=== PATIENT | male | born 1945 | race Caucasian/White ===

== ENCOUNTER 2016-12-17 06:48 | Outpatient (CLI) | payer MEDICARE ==
[~2016-12-17] VITALS: Ht 188 cm; Wt 90.5 kg
--- NOTE | ~2016-12-17 | HEMODYNAMI ---
PATIENT:LILIAN LANE MEDICAL RECORD: [id number] : 47 LOCATION:[facility] ADMISSION DATE: 12/17/16 Generatedon:12/17/20169:24 Patient name: LILIAN LANE Patient #: [id number] : 1945 Date of study: 12/17/2016 Page: Of Hemodynamic Procedure Report Patient Data Patient Demographics Procedure consent was obtained First Name: LILIAN Gender: Male Last Name: ARIANA : 1945 Patient #: [id number] Age: 71 year(s) Race: SSN: [id number] Additional ID: [id number] Contact details [address]: [address] [place] [address] State: [place] City: [place] Zip code: [address] Admission Admission Data Admission Date: 12/17/2016 Admission Time: 6:48 Arrival Date: 12/17/2016 Arrival Time: 9:00 Admit Source: Other Insurance Payor: Medicare Height (in.): 74 BSA: 2.15 (m2) Height (cm.): 187.96 BMI: 25.04 (kg/m2) Weight (lbs.): 195 Weight (kg.): 88.45 Lab Results Lab Result Date: 12/17/2016 Lab Result Time: 0:00 Biochemistry Name Units Result Min Max BUN mg/dl 9 --(*---)-- 7 18 Creatinine mg/dl 1.3 --(---*)-- 0.6 1.3 CBC Name Units Result Min Max Hemoglobin g/dl 13.4 -*(----)-- 13.5 17.5 Procedure Procedure Types Cath Procedure Diagnostic Procedure LHC LHC w/Coronaries w/Grafts Miscellaneous Procedures Moderate Sedation up to 30 minutes Procedure Description Procedure Date Procedure Date: 12/17/2016 Procedure Start Time: 9:01 Procedure End Time: 9:21 Procedure Staff Name Function Guillaume Henry MD Performing Physician Estella Kong RT Scrub Mike Morataya RN Nurse Jake Sanchez RT Monitor Procedure Data Cath Procedure Fluoroscopy Diagnostic fluoroscopy Total fluoroscopy Time: 5.2 time: 5.2 min min Diagnostic fluoroscopy Total fluoroscopy dose: 628 dose: 628 mGy mGy Contrast Material Contrast Material Type Amount (ml) Isovue 370 113 Entry Location Entry Primary Successful Side Size Upsize Upsize Entry Closure Succes sful Closure Location (Fr) 1 (Fr) 2 (Fr) Remarks Device Remarks Femoral Right 5 Fr Exoseal artery Estimated blood loss: 5 ml Diagnostic catheters Device Type Used For End Catheter Placement Cordis 5Fr JL 4.0 Left Coronary Catheter (MP) Angiography Cordis 5Fr 3DRC Catheter Right Coronary (MP) Angiography Diagnostic Infinity 5Fr Multi-vessel IM catheter Angiography Diagnostic Infinity 5Fr Multi-vessel AR MOD Catheter Angiography Cordis 5Fr Pigtail LV Angiography Catheter (MP) Procedure Complications No complications Procedure Medications Medication Administration Route Dosage Oxygen NC 2 l/min Heparin Flush Bag added to field 2 bags (1000units/500ml NS) 0.9% NaCl I.V. 100 ml/hr Fentanyl I.V. 50 mcg Versed I.V. 1 mg Fentanyl I.V. 50 mcg Versed I.V. 1 mg Hemodynamics Rest BSA: 2.15 (m2) HGB: 13.4 (g/dl) O2 Consumption: Estimated: 259.15 (ml/min) O2 Co nsumption indexed: Estimated:120.53 (ml/min/m) Heart Rate: 83 (bpm) Pressure Samples Time Site Value (mmHg) Purpose Heart Use Rate(bpm) 9:15 LV 121/21,47 Snapshot 67 9:16 AO 123/68(97) Pullback 69 Gradients Valve Time Site Site 2 Mean SEP/DFP Peak To Heart Use 1 (mmHg) (sec/min) Peak Rate (mmHg) (bpm) Aortic 9:16 LV AO 11 56 69 123/68(97) Calculations Valve P-P Mean Valve Index Valve Source Name Gradient Area Flow (cm2) Aortic 11 11 Snapshots Pre Cath Intra NCS Post Cath Vital Signs Time Heart Resp SPO2 etCO2 [id number] NIBP (mmHg) Rhythm Pain Sedation Rate (ipm) (%) (mmHg) (mmHg) Status Level (bpm) 8:44:51 67 18 95 0 0 136/69(83) NSR 0 (11) 10(A) , No pain 8:49:03 65 18 97 0 0 127/64(102) NSR 0 (11) 10(A) , No pain 8:53:13 70 19 97 0 0 123/75(100) NSR 0 (11) 10(A) , No pain 8:57:23 57 18 98 0 0 117/71(90) NSR 0 (11) 10(A) , No pain 9:01:32 59 18 96 0 0 114/64(87) NSR 0 (11) 10(A) , No pain 9:05:40 60 16 93 0 0 112/66(82) NSR 0 (11) 10(A) , No pain 9:09:46 63 19 94 0 0 112/71(85) NSR 0 (11) 10(A) , No pain 9:13:52 68 17 95 0 0 108/69(78) NSR 0 (11) 10(A) , No pain 9:17:58 57 18 95 0 0 111/68(92) NSR 0 (11) 10(A) , No pain Medications Time Medication Route Dose Verified Delivered Reason Notes Effect iveness by by 8:51:10 Oxygen NC 2 Mike Mike Per l/min Hood Morataya RN physician RN 8:51:19 Heparin Flush added 2 Mike Mike used for Bag to bags Hood Morataya sat act instructor (1000units/500ml field RN NS) 8:51:38 0.9% NaCl I.V. 100 Mike Mike Per ml/hr Hood Morataya RN physician RN 8:53:28 Fentanyl I.V. 50 Mike Mike for hans Morataya RN sedation RN 8:53:51 Versed I.V. 1 mg Mike Mike for Hood Morataya RN sedation RN 8:59:15 Fentanyl I.V. 50 Mike Mike for hans Morataya RN sedation RN 8:59:18 Versed I.V. 1 mg Mike Mike for oHod Morataya RN sedation emissions testing and repair technician Log Time Note 8:18:25 Informed consent obtained and on chart 8:18:31 Diagnostic Cath Status : Elective 8:20:00 Mike Morataya RN sent for patient. Start room use. 8:21:30 Admit Source: Other 8:21:34 Arrival Date: 12/17/2016 9:00:00 AM 8:21:41 Insurance Payor : Medicare 8:26:01 Patient Height : 74 cm 8:26:33 Patient Weight : 195 kg 8:30:09 Lab Result : BUN 9 mg/dl 8:30:09 Lab Result : Hemoglobin 13.4 g/dl 8:30:09 Lab Result : Creatinine 1.3 mg/dl 8:35:28 Time tracking: Regular hours 8:35:34 Plan of Care:Hemodynamics will remain stable., Cardiac rhythm will remain stable., Comfort level will be maintained., Respiratory function will remain adequate., Patient/ family verbilizes understanding of procedure., Procedure tolerated without complication., Recovers from procedure without complications.. 8:37:53 Patient received from Pre/Post Procedure Room to CCL 1 Alert and oriented. Tansferred to table in Supine position. 8:37:55 Warm blankets applied, and stephen hugger turned on for patient comfort. 8:37:55 Correct patient and procedure confirmed by team. 8:37:56 ECG and BP/O2 sat monitors applied to patient. 8:43:52 Vital chart was started 8:45:38 Baseline sample Acquired. 8:45:47 Rhythm: sinus rhythm 8:45:49 Full Disclosure recording started 8:45:53 H&P Date Dictated: 12/17/2016 New H&P dictated by physician.. 8:45:55 Pre-procedure instructions explained to patient. 8:45:55 Pre-op teaching completed and patient verbalized understanding. 8:45:56 Family in waiting room. 8:45:58 Patient NPO since Midnight. 8:46:10 Is the patient allergic to Iodine/contrast media? No. 8:46:13 Was the patient premedicated? No 8:46:14 Is patient on blood thinner?No 8:46:15 Patient diabetic? No. 8:46:18 Previous problem with sedation/anesthesia? No ? 8:46:25 Snore? No 8:46:26 Sleep apnea? No 8:46:28 Deviated septum? No 8:46:29 Opens mouth fully? Yes 8:46:29 Sticks out tongue? Yes 8:46:31 Airway obstruction? No ? 8:46:35 Dentures? No ? 8:49:13 Pre procedure: right dorsailis pedis pulse 1+ Palpable, but thready & weak; easily obliterated 8:49:16 Pre procedure: left dorsailis pedis pulse 1+ Palpable, but thready & weak; easily obliterated 8:49:18 Patient pain scale 0/10 ?. 8:49:37 IV patent on arrival in right forearm with 0.9% NaCl at O. 8:49:40 Lab results completed and on chart. 8:49:44 Right groin area was prepped with chlora-prep and draped in sterile fashion 8:49:45 Alarms reviewed by R. N. 8:49:46 Sharps counted by scrub and verified by R.N. 8:49:48 Physician arrived 8:49:48 --------ALL STOP TIME OUT------ 8:49:49 Final Timeout: patient, procedure, and site verified with staff and physician. All members of the team are in agreement. 8:49:50 Right groin site verified by team. 8:50:01 Physical assessment completed. ASA score P 2 - A patient with mild systemic disease as per Guillaume Henry MD. 8:50:05 Sedation plan: IV Moderate Sedation Versed, Fentanyl 8:50:09 Use device set Femoral Dx 8:50:11 Acist Syringe opened to sterile field. 8:50:11 Bag Decanter opened to sterile field. 8:50:11 Medline Cath Pack opened to sterile field. 8:50:12 Terumo 5Fr [place] Sheath opened to sterile field. 8:50:12 St Rick 260cm J .035 wire opened to sterile field. 8:50:14 Acist Hand Control opened to sterile field. 8:50:14 Acist Manifold opened to sterile field. 8:50:14 Diagnostic Infinity 5Fr Multipack catheter opened to sterile field. 8:50:15 Tegaderm 4 x 4 opened to sterile field. 8:51:10 Oxygen 2 l/min NC was administered by Mike Morataya RN; Per physician; 8:51:19 Heparin Flush Bag (1000units/500ml NS) 2 bags added to field was administered by Mike Morataya RN; used for procedure; 8:51:38 0.9% NaCl 100 ml/hr I.V. was administered by Mike Morataya RN; Per physician; 8:53:28 Fentanyl 50 mcg I.V. was administered by Mike Morataya RN; for sedation; 8:53:51 Versed 1 mg I.V. was administered by Mike Morataya RN; for sedation; 8:59:15 Fentanyl 50 mcg I.V. was administered by Mike Morataya RN; for sedation; 8:59:18 Versed 1 mg I.V. was administered by Mike Morataya RN; for sedation; 8:59:58 Procedure started. 9:01:04 Local anesthetic to right femoral artery with Lidocaine 2% by Guillaume Henry MD.INITIAL ACCESS ONLY 9:01:37 A 5 Fr sheath was inserted into the Right Femoral artery 9:02:46 A Cordis 5Fr JL 4.0 Catheter (MP) was advanced over the wire and used for Left Coronary Angiography. 9:03:56 LCA angiography performed. 9:04:00 Injector settings: Ml/sec: 3, Volume: 6, 9:07:12 Catheter removed. 9:07:16 A Cordis 5Fr 3DRC Catheter (MP) was advanced over the wire and used for Right Coronary Angiography. 9:07:46 RCA angiography performed. 9:07:48 Injector settings: Ml/sec: 3, Volume: 6, 9:08:43 Catheter removed. 9:08:56 A Diagnostic Infinity 5Fr IM catheter was advanced over the wire and used for Multi-vessel Angiography. 9:09:03 NGUYEN angiography performed. 9:09:07 Injector settings: Ml/sec: 3, Volume: 6, 9:11:52 Catheter removed. 9:12:18 A Diagnostic Infinity 5Fr AR MOD Catheter was advanced over the wire and used for Multi-vessel Angiography. 9:13:28 SVG to Circ occluded. 9:14:09 SVG to RCA occluded. 9:15:05 Catheter removed. 9:15:13 A Cordis 5Fr Pigtail Catheter (MP) was advanced over the wire and used for LV Angiography. 9:15:51 LV hemodynamics recorded. 9:15:53 LV gram done using MCKEON 9:15:56 Injector settings: Ml/sec: 5, Volume: 15, 9:16:04 EF : 15 % 9:16:52 Aortic Root visualized 9:17:22 Catheter removed. 9:17:56 Cordis 5Fr Exoseal opened to sterile field. 9:18:14 Sheath removed intact; hemostasis achieved with Exoseal to the Right Femoral artery. 9:18:17 Procedure ended.(Physican Out) 9:18:38 Fluoroscopy time 05.20 minutes. 9:18:43 Flurop Dose total: 628 9:18:44 Fluoroscopy dose: 628 mGy 9:18:49 Contrast amount:Isovue 370 113ml. 9:18:54 Sharps counted by scrub and verified by R.N. 9:18:58 Insertion/operative site no bleeding no hematoma. 9:19:01 Post-op/insertion site Right Femoral artery dressed using a 4 x 4 and Tegaderm. 9:19:05 Post right femoral artery:stable 9:19:22 Post Procedure Pulses reassessed and unchanged 9:19:25 Post procedure rhythm: unchanged. 9:19:27 Estimated blood loss: 5 ml 9:19:30 Post procedure instruction explained to patient.Patient verbalizes understanding. 9:19:30 Patient needs reinforcement of post procedure teaching. 9:20:13 Procedure type changed to Cath procedure, Diagnostic procedure, LHC, LHC w/Coronaries w/Grafts, Miscellaneous Procedures, Moderate Sedation up to 30 minutes 9:20:14 Procedure and supply charges have been captured, reviewed, submitted and are correct. 9:20:24 Procedure Complication : No complications 9:20:27 Vital chart was stopped 9:20:28 See physician's report for complete and final results. 9:21:04 Report given to Pre/Post Procedure Room. 9:21:07 Patient transfered to Pre/Post Procedure Room with Stretcher. 9:21:11 Procedure ended. 9:21:11 Full Disclosure recording stopped 9:21:42 End room use (Document Last) Device Usage Item Name Manufacture Quantity Catalog Hospital Part Current Minimal Lo t# / Number Charge Number Stock Stock Serial# Code Acist Acist 1 56344 704693 453443 177793 20 Syringe [employer] Bag Microtek 1 2002S 307263 22026 548074 5 Decanter [employer] Inc. Medline Cardinal 1 [id number] 469902 13906 538739 5 Cath MindEdge Terumo 5Fr Terumo 1 [id number] 463741 611754 424976 [address] [place] [address] Rick St Rick 1 830695 676044 253721 195658 30 260cm J .035 wire Acist Hand Acist 1 59136 779894 074711 150929 5 Control [employer] Inc Acist Acist 1 25268 606512 227021 590992 5 Manifold Medical Systems Inc Diagnostic Cardinal 1 [id number] 869922 29254 535079 30 Infinity Health 5Fr Multipack catheter Tegaderm 4 3M 1 1626W 484449 142870 918217 5 x 4 Cordis 5Fr Cardinal 1 365347 5 JL 4.0 Health Catheter (MP) Cordis 5Fr Cardinal 1 385710 5 3DRC Health Catheter (MP) Diagnostic Cardinal 1 [id number] 795226 726464 571961 5 Infinity Health 5Fr IM catheter Diagnostic Cardinal 1 [id number] 950610 261280 179030 15 Infinity Health 5Fr AR MOD Catheter Cordis 5Fr Cardinal 1 659719 5 Pigtail Health Catheter (MP) Cordis 5Fr Cardinal 1 EX500 237258 545879 295573 10 [employer]buy Signature Audit [place] Stage Time Signature Unsigned Intra-Procedure 12/17/2016 Estella Kong 9:23:57 AM RT(R) Signatures Monitor : Jake Sanchez RT Signature : Date : Time : [place] [id number] [facility] [place] [address]
--- NOTE | ~2016-12-17 | OP ---
PATIENT NAME: LILIAN LANE MEDICAL RECORD: [id number] :47 LOCATION:D.CAT ADMISSION DATE: SURGEON: NAVEED PADRON M.D. DATE OF OPERATION: 12/17/2016 PROCEDURES PERFORMED: 1. Selective coronary angiography. 2. Left heart catheterization with ventriculogram. 3. Aortic root injection. 4. Bypass angiography. 5. Left internal mammary injection. INDICATION: A 71-year-old gentleman presents with worsening dyspnea. Recent stress test revealed anterior and inferior wall ischemia. EQUIPMENT USED: A 5-[place] JL4, AR modified catheter, internal mammary catheter, pigtail catheter. TECHNIQUE: A 5-[place] sheath was inserted in retrograde fashion in the right common femoral artery. Next, selective coronary angiography was performed in standard 5-[place] JL4, AR modified catheters. Bypass angiography was performed using an AR modified catheter. The internal mammary was selected with internal mammary catheter. Left heart catheterization performed using pigtail catheter. The catheter was then pulled back in the ascending aorta. Aortogram was performed as there was some difficulty crossing the aortic valve. CORONARY ANATOMY: 1. Left main: Left main trunk is large in caliber. It gives rise to the LAD and circumflex. It has no obstruction. 2. LAD: This vessel is 100% occluded at the origin. 3. Circumflex: This vessel is moderate in caliber. There is a long 90% stenosis before the bifurcation point. Lateral branch is occluded at the origin, but fills through intercoronary collaterals. The AV continuation of the circumflex fills the distal right coronary artery as well. There appears to be a ramus branch that is severely diseased. It appears to be occluded in the proximal segment fills through bridging collaterals. 4. Right coronary: This vessel is 100% occluded in the proximal segment. The distal vessel fills through intercoronary collaterals. 5. Left internal mammary artery to LAD: This graft is widely patent throughout its course. Beyond anastomosis, the vessel is small. It is patent. At the level of the apex, the vessel is occluded, but the apex fills through intercoronary collaterals from the diagonal branch. The distal LAD also provides collaterals to fill the distal right coronary artery. 6. Saphenous vein graft to diagonal branch. This graft is occluded at the origin. 7. Saphenous vein graft to obtuse marginal branch: This graft is occluded at the origin. 8. Saphenous vein graft to the PDA: This graft is occluded at the origin. 9. Left ventricle: Left ventricle is dilated. There is severe LV dysfunction noted. There is severe global hypokinesis noted. Estimated ejection fraction is in the order of 15%. AORTOGRAM: Ascending aortogram was performed secondary to difficulty in crossing the aortic valve. The ascending aorta is of abnormal caliber. I do not see any insufficiency. There is no evidence of stenosis. There are no patent bypass grafts OPERATIVE REPORT [id number] LILIAN LANE noted. IMPRESSION: 1. Severe marshall coronary artery disease. Most vessels fills through intercoronary collaterals. 2. Patent left internal mammary artery graft to LAD. This graft is essentially fills the distal right coronary artery as well as the distal LAD. 3. Severe left ventricular dysfunction with ejection fraction of 15%. RECOMMENDATIONS: At this point, we will continue with medical management as there is no relapses for revascularization. TRANSINT:[id number] Voice Confirmation ID: [id number] DOCUMENT ID: [id number], [id number] NAVEED PADRON M.D. CC: [id number] DICTATION DATE: 12/17/16928 NATIONAL SALES ASSOCIATE: 12/17/162014 [facility] CLI 12/17/16 [facility] [address] [place] [address]
[~2016-12-17 06:48] MED LIST: AMBIEN10 MG PO; CIPRO500 MG PO; CLOTRIM ANTIFUN15 GM TOPICAL; DIFLUCAN PREMI100 MG IV; FAMOTIDINE10 MG PO; KLONOPIN1 MG PO; LISINOPRIL10 MG PO; MELATONIN 3 MG1 TAB PO; MOBIC7.5 MG PO; PROZAC20 MG PO; TEFLARO 600 MG600 M1 IV; ULTRAM50 MG PO; Unna-Flex TOPICAL; ZESTRIL20 MG PO; ZYLOPRIM100 MG PO
[2016-12-17] MEDS ORDERED: CYMBALTA30 MG PO (07:22)
[2016-12-17] MEDS ORDERED: KLONOPIN1 MG PO (07:23)
[2016-12-17] MEDS ORDERED: CARDIZEM120 MG PO (07:23)
[2016-12-17] MEDS ORDERED: NORCO 7.5/325 T1 TA1 PO (07:24)
[2016-12-17] MEDS ORDERED: AMBIEN10 MG PO (07:24)
[2016-12-17 07:34] VITALS: BP 121/64; Ht 188 cm; Wt 90.5 kg
[2016-12-17 07:40] LABS: BASOPHILS 0.5 % (0-2); EOSINOPHILS 3.5 % (0-7); HEMATOCRIT 41.3 % (42.0-54.0); HEMOGLOBIN 13.4 g/dL (13.5-17.5); IMMATURE GRANULOCYTES 0.1 % (0-5); LYMPHOCYTES 9.1 % (15-50); MCH 29.9 pg (26.0-34.0); MCHC 32.4 g/dL (31.0-37.0); MCV 92.2 fL (80.0-100.0); MEAN PLATELET VOLUME 9.8 fL (7.4-10.4); MONOCYTES 9.4 % (2-11); NEUTROPHILS 77.4 % (40-80); RBC 4.48 10x6/uL (4.20-6.10); RDW 14.9 % (11.5-14.5)
[2016-12-17 07:51] LABS: PLATELET COUNT 226 10x3/uL (130-400)
[2016-12-17 07:53] LABS: ANION GAP 11.3 mmol/L (8-16); CALCIUM 9.1 mg/dL (8.5-10.1); CARBON DIOXIDE 29.4 mmol/L (21.0-32.0); CREATININE - SERUM 1.3 mg/dL (0.6-1.3); POTASSIUM - SERUM 3.7 mmol/L (3.5-5.1)
--- NOTE | 2016-12-17 09:42 | NUR ---
VSS WITH CHEST PAIN DENIED. 5 FR EXOSEAL R/GROIN CDI NO BLEEDING NO HEMATOMA NOTED. DR PADRON AT BEDSIDE TALKING TO PATIENT AND FAMILY
--- NOTE | 2016-12-17 10:00 | NUR ---
1000 VSS WITH CHEST PAIN DENIED. 5 FR EXOSEAL R/GROIN CDI NO BLEEDING NO HEMATOMA NOTED. INSTRUCTED PATIENT TO KEEP HEAD FLAT ON PILLOW WITH RLE STRAIGHT 1015 NO CHANGE IN ASSESSMENT R/GROIN REMAINS CDI WITH CHEST PAIN DENIED
--- NOTE | 2016-12-17 10:45 | NUR ---
1045 NO CHANGE IN PREVIOUS ASSESSMENT R/GROIN CDI 1130 REPOSITIONED TO SITTING WITH HOB UP 30 DEGREES CHEST PAIN IS DENIED. R/GROIN CDI
--- NOTE | 2016-12-17 12:00 | NUR ---
1200 PIV REMOVED FROM LEFT ARM WITH DRESSING APPLIED. PATIENT UP TO GET DRESSED FOR DISCHARGE HOME. CHEST PAIN IS DENIED AND R.GROIN CDI NO BLEEDING NO HEMATOMA NOTED 1220 VERBAL AND WRITTEN DISCHARGE GONE OVER WITH PATIENT AND FAMILY. ALL VERBALIZED UNDERSTANDING OF INSTRUCTIONS. LEFT VIA WC TO PARKING FOR FAMILY TO DRIVE HOME. NO C/O OF PAIN
== END 2016-12-17 12:30 ==
LOC: D.CATH 06:48
PROVIDERS: Internal Medicine Cardiovascular Disease
DX: I25.119 Atherosclerotic heart disease of native coronary artery with unspecified angina pectoris (principal); I25.719 Atherosclerosis of autologous vein coronary artery bypass graft(s) with unspecified angina pectoris; I51.9 Heart disease, unspecified

== ENCOUNTER 2016-12-17 21:34 | Emergency (ER) | payer MEDICARE ==
[2016-12-17 07:34] VITALS: BMI 25.6
[~2016-12-17 21:34] MED LIST changes: +CARDIZEM120 MG PO; +CYMBALTA30 MG PO; +NORCO 7.5/325 T1 TA1 PO
[2016-12-18 02:15] LABS: APPEARANCE CLEAR (CLEAR); BILIRUBIN NEGATIVE (NEGATIVE); COLOR YELLOW (YELLOW); GLUCOSE NEGATIVE (NEGATIVE); KETONE SMALL mg/dL (NEGATIVE); LEUKOCYTE ESTERASE NEGATIVE (NEGATIVE); NITRITE NEGATIVE (NEGATIVE); PH 6.5 (5.0-6.0); PROTEIN NEGATIVE (NEGATIVE); SPECIFIC GRAVITY 1.015 (1.005-1.020); UROBILINOGEN NORMAL (NORMAL)
== END 2016-12-18 01:59 | disposition home or self-care (01) ==
LOC: D.ER 21:34
PROVIDERS: Emergency Medicine
DX: R31.9 Hematuria, unspecified (principal); R33.9 Retention of urine, unspecified; Z95.1 Presence of aortocoronary bypass graft; Z93.3 Colostomy status; I95.9 Hypotension, unspecified

== ENCOUNTER 2017-02-11 05:25 | Inpatient (IN) | payer MEDICARE ==
[2017-02-10 09:51] LABS: HEMOGLOBIN 13.8 g/dL (13.5-17.5); MCH 29.8 pg (26.0-34.0); MCHC 32.1 g/dL (31.0-37.0); MCV 92.9 fL (80.0-100.0); MEAN PLATELET VOLUME 9.9 fL (7.4-10.4); RBC 4.63 10x6/uL (4.20-6.10); WBC 6.8 10x3/uL (4.8-10.8)
[2017-02-10 10:10] LABS: ANION GAP 10.2 mmol/L (8-16); CALCIUM 9.2 mg/dL (8.5-10.1); CARBON DIOXIDE 28.7 mmol/L (21.0-32.0); CREATININE - SERUM 1.1 mg/dL (0.6-1.3); POTASSIUM - SERUM 4.9 mmol/L (3.5-5.1)
[~2017-02-11] VITALS: Ht 188 cm; Wt 90.7 kg
[~2017-02-11 05:25] MED LIST changes: +COREG 3.1253.125 MG PO; -CYMBALTA30 MG PO; +CYMBALTA60 MG PO; +FLOMAX0.4 MG PO
[2017-02-11 06:52] VITALS: BP 97/63; Ht 188 cm; Wt 90.7 kg
--- NOTE | 2017-03-13 11:49 | OP ---
PATIENT NAME: LILIAN LANE MEDICAL RECORD: [id number] :47 LOCATION:[facility] [place]- ADMISSION DATE:02/11/17 SURGEON: LATRICIA WALKER MD DATE OF OPERATION: 02/11/2017 PREOPERATIVE DIAGNOSIS: Stomal prolapse with surrounding skin ulceration, marked. POSTOPERATIVE DIAGNOSIS: Stomal prolapse with surrounding skin ulceration, marked, with parastomal hernia, incarcerated. PROCEDURES: 1. Complex ileostomy revision. 2. Parastomal hernia repair without mesh. SURGEON: Latricia Walker MD BUMBOATER: None. ESTIMATED BLOOD LOSS: Minimal. ANESTHESIA: General. COMPLICATIONS: None. I initially thought the patient had a single stoma, but instead has a proximal stoma with a mucous fistula. He has history of Crohn's disease. His Crohn's symptoms have improved since placement of the stoma. He has marked prolapse. His prolapse was so significant that it caused ulceration of the skin inferiorly. The patient was conveyed to the operating room electively on 02/11/2017. The complexity of the procedure was increased due to the size of prolapse, the size of the parastomal hernia repair and the fact that I really was in fear of resecting any more small bowel as we want to maintain all the patient's small bowel length that we can OPERATIVE COURSE: The patient was conveyed to the operating room electively on 02/11/2017. General anesthesia was induced by the anesthesia staff. The abdomen was sterilely prepped and draped. A circular incision was accomplished around the 2 stomas. I then sharply freed them from surrounding skin and subcutaneous tissue. I dissected down to a parastomal hernia, which was large. I continued dissection of adhesions was performed. I had to widen the hernia defect a little further in order to deliver the 2 stomas. I was able to reduce the prolapsed stoma that was ____ of stoma and was not the mucous fistula. I performed some intraabdominal dissection as well to free of any adhesions. Once I was able to deliver about a foot of the ileostomy, I chose to go about the repair of the parastomal hernia. In order to reduced the stoma, I had to excise a portion of the omentum that was within the hernia as well as some of the vascular pedicle. I checked with a handheld Doppler and there was still good Doppler signal at the end of the stoma. The hernia defect was closed in the following fashion. This was closure with a horizontal mattress #1 Vicryls as well as some #1 Surgidac in a horizontal mattress fashion. I tightened up the fascial defect through which the stoma had OPERATIVE REPORT [id number] ARIANALILIAN L passed. I was then able to replace the mucous fistula, which was flushed with the skin. This mucous fistula was sutured through the surrounding skin with interrupted 3-0 Vicryl sutures. For fear of causing fistulas, I tried to minimize any everting sutures. This was a Tash type of ileostomy that was fashioning. I reformed the stoma in a Tash-type fashion. I took large bites with my everting sutures. This was done in 4 quadrants. I then sutured the surrounding full thickness ileum to the skin with interrupted 3-0 Vicryl sutures. There was no evidence of recurrent herniation or recurrent stomal prolapse. A stoma appliance was applied. The patient was then extubated and conveyed to post-anesthesia care unit where he was in stable condition. TRANSINT:[id number] Voice Confirmation ID: [id number] DOCUMENT ID: [id number] LATRICIA WALKER MD at 1149 CC: [id number] DICTATION DATE: 03/05/17 1037 EGG SMELLER: 03/05/17 1737 DIS IN 02/11/17 [place] [id number] [place] [id number]
== END 2017-02-11 14:05 | disposition home or self-care (01) | DRG 355 ==
LOC: D.SDCHOLD 05:25 → D.OPS 09:00 → D.PAN 11:45 → D.OPS 11:45 → EDSTATUS 11:45 → D.SDCHOLD 14:05
PROVIDERS: Anesthesiology; ADMIT Surgery
PROC: 0WQF0ZZ Repair Abdominal Wall, Open Approach (ICD-10-PCS; principal; 2017-02-11 08:00)
DX: K94.09 Other complications of colostomy (principal); K43.5 Parastomal hernia without obstruction or gangrene; I10 Essential (primary) hypertension; I25.10 Atherosclerotic heart disease of native coronary artery without angina pectoris; Z86.73 Personal history of transient ischemic attack (TIA), and cerebral infarction without residual deficits

== ENCOUNTER 2017-08-14 21:41 | Emergency (ER) | payer MEDICARE ==
[2017-02-11 06:52] VITALS: BMI 25.7
[2017-08-14 22:33] LABS: BASOPHILS 0.4 % (0-2); EOSINOPHILS 1.6 % (0-7); HEMATOCRIT 46.4 % (42.0-54.0); HEMOGLOBIN 15.1 g/dL (13.5-17.5); IMMATURE GRANULOCYTES 0.2 % (0-5); LYMPHOCYTES 4.3 % (15-50); MCH 28.9 pg (26.0-34.0); MCHC 32.5 g/dL (31.0-37.0); MCV 88.7 fL (80.0-100.0); MEAN PLATELET VOLUME 10.7 fL (7.4-10.4); MONOCYTES 3.2 % (2-11); NEUTROPHILS 90.3 % (40-80); PLATELET COUNT 273 10x3/uL (130-400); RBC 5.23 10x6/uL (4.20-6.10); WBC 13.6 10x3/uL (4.8-10.8)
[2017-08-14 22:34] LABS: APPEARANCE CLEAR (CLEAR); BILIRUBIN NEGATIVE (NEGATIVE); COLOR YELLOW (YELLOW); GLUCOSE NEGATIVE (NEGATIVE); KETONE NEGATIVE (NEGATIVE); NITRITE NEGATIVE (NEGATIVE); PROTEIN TRACE mg/dL (NEGATIVE); UROBILINOGEN NORMAL (NORMAL)
[2017-08-14 22:35] LABS: BACTERIA MODERATE /hpf (NONE SEEN); RED CELLS - URINE 0-5 /hpf (0-5)
[2017-08-14 22:57] LABS: ALBUMIN 3.7 g/dL (3.4-5.0); ANION GAP 15.5 mmol/L (8-16); BILIRUBIN - TOTAL 0.43 mg/dL (0.2-1.3); CALCIUM 9.9 mg/dL (8.5-10.1); CARBON DIOXIDE 27.4 mmol/L (21.0-32.0); CREATININE - SERUM 1.4 mg/dL (0.6-1.3); POTASSIUM - SERUM 3.9 mmol/L (3.5-5.1); PROTEIN - SERUM 8.1 g/dL (6.4-8.2)
== END 2017-08-15 00:35 | disposition home or self-care (01) ==
LOC: D.ER 21:41 → D.M2 23:27 → D.ER 08-15 00:35
PROVIDERS: Emergency Medicine
DX: N39.0 Urinary tract infection, site not specified (principal)

== ENCOUNTER → 2019-11-21 15:53 | Outpatient (CLI) | payer MEDICARE ==
[2017-02-11 06:52] VITALS: BMI 25.7
[2019-11-21 17:49] LABS: BILIRUBIN NEGATIVE (NEGATIVE); GLUCOSE NEGATIVE (NEGATIVE); KETONE NEGATIVE (NEGATIVE); NITRITE POSITIVE (NEGATIVE); SPECIFIC GRAVITY 1.025 (1.005-1.020); UROBILINOGEN NORMAL (NORMAL)
[2019-11-21 17:50] LABS: AMORPHOUS SEDIMENT <1+ /lpf (NONE SEEN); BACTERIA MANY /hpf (NEGATIVE); EPITHELIAL CELLS RARE /hpf (0-5); RED CELLS - URINE RARE /hpf (0-5); WHITE CELLS - URINE 0-5 /hpf (NEGATIVE)
== END | disposition home or self-care (01) ==
LOC: D.LABREF 15:53
PROVIDERS: ATTEND Internal Medicine
DX: N39.0 Urinary tract infection, site not specified (principal)